=== PATIENT | female | born 1995 | race Caucasian/White ===

== ENCOUNTER 2018-06-22 02:13 | Emergency (ER) | payer SELFPAY ==
[~2018-06-22] VITALS: Ht 167.6 cm; Wt 69.1 kg
[2018-06-22 02:30] VITALS: BP 158/93; PULSE 86; TEMP 99.5
[2018-06-22] MEDS ORDERED: MICROGESTIN 1.51 TAB PO (02:35)
[2018-06-22 03:52] LABS: COLLECTION METHOD CLEAN CATCH
[2018-06-22 03:59] LABS: PH 8 (5-8); SQUAMOUS EPITHELIAL None Seen /hpf; URINE APPEARANCE Clear; URINE BACTERIA None Seen /hpf; URINE BILIRUBIN Negative (NEGATIVE); URINE BLOOD Negative (NEGATIVE); URINE COLOR Straw; URINE GLUCOSE Negative (NEGATIVE); URINE KETONE Negative (NEGATIVE); URINE LEUKOCYTE ESTERASE Negative (NEGATIVE); URINE NITRATE Negative (NEGATIVE); URINE PROTEIN(semi-quant) Negative (NEGATIVE); URINE RBC 0-2 /hpf; URINE UROBILINOGEN Negative (NEGATIVE)
[2018-06-22] MEDS ORDERED: PHENERGAN 25 TA25 MG PO (05:32)
== END 2018-06-22 05:47 | disposition home or self-care (01) ==
LOC: COL.ER 02:13
PROVIDERS: Emergency Medicine
DX: R51 Headache (principal); R11.10 Vomiting, unspecified; M54.2 Cervicalgia; M54.9 Dorsalgia, unspecified
CPT/HCPCS: J1885; J2550